=== PATIENT | male | born 1960 | race Caucasian/White ===

== ENCOUNTER 2019-09-15 09:39 | Outpatient (CLI) | payer BC ==
[2019-09-15] MEDS ORDERED: Iopamidol 300 61% 50 ML VIAL FS ONE (10:35)
[2019-09-15] MEDS ORDERED: Lidocaine 1% PF 10 ML AMP ONE (10:35)
[2019-09-15] MEDS ORDERED: EPINEPHrine 1 MG/ML AMP ONE (10:35)
--- NOTE | 2019-09-15 14:05 | RAD ---
Arthrogram right shoulder HISTORY: Internal derangement. FINDINGS: After explaining the procedure and answering all questions, the anterior aspect of the [facility] t shoulder was prepped and draped in usual sterile fashion. Sterile technique, buffered local anesthesia, fluoroscopic guidance, and an anterior approach were used to carefully advance the tip of a 22-gauge spinal needle to the joint capsule at the level of the humeral head. Approximately 8 cc of a liquid mixture containing normal saline, 1% lidocaine, and iodinated contrast were instilled int o the joint capsule under fluoroscopic control. Needle was removed. Contrast remained within the joint capsule. Patient tolerated the procedure well and was transferred to CT in good condition for further imaging. Fluoroscopy time 0.3 minutes. IMPRESSION : Technically successful right shoulder arthrogram, revealing no full-thickness rotator cuff tear. CT i s pending.
--- NOTE | 2019-09-15 18:04 | CT ---
CT RIGHT SHOULDER WITH INTRA-ARTICULAR CONTRAST: 09/15/19 HISTORY: Sprain of the right shoulder initial encounter. COMPARISON: Radiograph 09/08/19. FINDINGS: Visualized portion of the right lung parenchyma is intact. No acute rib fracture. 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 Normal glenoid version. No fracture or marisela lignment of the humeral head or neck. BICEPS TENDON: Extra-articular biceps tendon appears to be in a normal location to the bicipital groove. No full thi ckness tear of the intra-articular tendon. LABRUM: No significant tearing of the superior labrum is appreciated. No anterior or posterior labral tear is appreciated nor an inferior labral tear. ROTATOR CUFF: There is a U-shaped tear of the high grade myotendinous junction tear throughout the supraspinatus te ndon which is 50-60% thickness. There is a thin 2 to 3 mm gap. The infraspinatus tendon appears to be spared. Teres minor is intact. Subscapularis is intact. SOFT TISSUES: No extension of joint fluid to the subacromial subdeltoid bursa. No significant free bodies are appreciated. IMPRESSION: 1. 60-70% undersurface tear of the myotendinous junction supraspinatus tendon involving the enti re AP length with 2-3 mm gap. No full thickness perforation. 2. Intact biceps tendon. 3. Intact labrum. 4. No acute fracture or malalignment. POS: HOME
== END 2019-09-15 09:40 | disposition home or self-care (01) ==
LOC: RAD 09:39
PROVIDERS: ATTEND Orthopaedic Surgery
DX: S43.401A Unspecified sprain of right shoulder joint, initial encounter (principal); M75.111 Incomplete rotator cuff tear or rupture of right shoulder, not specified as traumatic
CPT/HCPCS: 23350; J0171; J2001; Q9967

== ENCOUNTER 2021-10-10 21:20 | Emergency (ER) | payer BC, SELFPAY | END 2021-10-10 21:58 | disposition home or self-care (01) | LOC: ERS 21:20 | DX: I10 Essential (primary) hypertension (principal) | CPT/HCPCS: 99283 ==